=== PATIENT | female | born 1965 | race American Indian/Alaskan Native ===

== ENCOUNTER 2017-01-06 11:10 | Emergency (ER) | payer SELFPAY ==
[2017-01-06 11:21] VITALS: BP 185/104
[2017-01-06] MEDS ORDERED: TORADOL IM ONE (12:52)
--- NOTE | 2017-01-06 13:30 | XRay Report ---
Left knee 2 views: History: Fall, knee pain. Findings: Marked narrowing of medial and patellofemoral compartment knee joint. Sclerotic adjacent articular surfaces with peripheral osteophyte suggestive of severe degenerative changes. There is linear density noted at the lateral tibial plateau. This probably represents old injury. Recent trabecular compression fracture if present cannot be entirely excluded. No joint effusion. Impression: Severe arthritic changes. Additional findings as detailed above .
--- NOTE | 2017-01-06 13:33 | XRay Report ---
Lumbar spine 3 views: History: Fall with low back pain. Findings Normal height of vertebral bodies. Decrease in height of L4-5 and L5-S1 interspaces with mild degenerative changes. Area of pars interarticularis L5-S1 is not optimally visualized due to motion artifacts. Parts interarticularis defect, if present, in the region cannot be excluded. Impression: Findings as detailed above.
--- NOTE | 2017-01-06 18:38 | Emergency Department Report ---
Entered by ALISSON CHAPMAN, acting as scribe for CELESTINO GOMEZ NP. ED Back Pain/Injury HPI - General Chief Complaint: Back Pain/Injury Stated Complaint: LOWER BACK/LEFT KNEE/LEG PAIN Time Seen by Provider: 01/06/17 12:45 Source: patient Limitations: No Limitations - History of Present Illness Initial Comments: This is a 51 year old female nontoxic, well nourished in appearance, no acute signs of distress, present to ED c/o back pain radiating down to buttocks and left knee for 3 weeks. Patient reports she fell getting out the tub where she landed on her buttocks, she describes pain as constant. Patient denies numbness , tingling, chest pain, SOB, trauma, headache, head trauma, LOC, or dizziness. She reports PMH of arthritits but denies any kidney problems. NKDA. HEAD Complaint: back pain, fall -: week(s) (3) Similar Symptoms Previously: No Place: home (getting out the tub) Radiation: buttocks, left leg (knee) Severity: moderate Severity scale (0 -10): 4 Quality: aching Consistency: constant Improves With: none Worsens With: movement Context: fall Associated Symptoms: denies other symptoms. denies: confusion, weakness, chest pain, numbness, difficulty walking, cough, diaphoresis, incontinence, fever/ chills, constipation, headaches, abdominal pain, loss of appetite, malaise, nausea/vomiting, rash, seizure, shortness of breath, syncope - Related Data Previous Rx's Medication Instructions Recorded Last Taken Type Ibuprofen [Motrin 600 MG tab] 600 mg PO Q8H PRN #30 tablet 01/06/17 Unknown Rx predniSONE [Deltasone] 20 mg PO BID #10 tab 01/06/17 Unknown Rx Allergies Allergy/AdvReac Type Severity Reaction Status Date / Time No Known Allergies Allergy Unverified 01/06/17 11:21 ED Review of Systems Comment: All other systems reviewed and negative Constitutional: denies: chills, fever Eyes: denies: eye pain, eye discharge, vision change ENT: denies: ear pain, throat pain Respiratory: denies: cough, shortness of breath, wheezing Cardiovascular: denies: chest pain, palpitations Endocrine: no symptoms reported Gastrointestinal: denies: abdominal pain, nausea, vomiting, diarrhea Genitourinary: denies: urgency, dysuria, discharge Musculoskeletal: back pain. denies: joint swelling, arthralgia Skin: denies: rash, lesions Neurological: denies: headache, weakness, numbness, paresthesias Psychiatric: denies: anxiety, depression Hematological/Lymphatic: denies: easy bleeding, easy bruising ED Past Medical Hx - Past Medical History Hx Arthritis: Yes Additional medical history: back pain - Social History Smoking Status: Never Smoker Substance Use Type: None - Medications Home Medications: Home Medications Medication Instructions Recorded Confirmed Last Taken Type Ibuprofen [Motrin 600 MG tab] 600 mg PO Q8H PRN #30 tablet 01/06/17 Unknown Rx predniSONE [Deltasone] 20 mg PO BID #10 tab 01/06/17 Unknown Rx ED Physical Exam - General Limitations: No Limitations General appearance: alert, in no apparent distress - Head Head exam: Present: atraumatic, normocephalic, normal inspection - Eye Eye exam: Present: normal appearance, PERRL, EOMI. Absent: scleral icterus, conjunctival injection, nystagmus, periorbital swelling, periorbital tenderness - ENT ENT exam: Present: normal exam, normal orophraynx, mucous membranes moist, TM's normal bilaterally, normal external ear exam - Neck Neck exam: Present: normal inspection, full ROM. Absent: tenderness, meningismus, lymphadenopathy - Respiratory Respiratory exam: Present: normal lung sounds bilaterally. Absent: respiratory distress, wheezes, rales, rhonchi, stridor, chest wall tenderness, accessory muscle use, decreased breath sounds, prolonged expiratory - Cardiovascular Cardiovascular Exam: Present: regular rate, normal rhythm, normal heart sounds. Absent: systolic murmur, diastolic murmur, rubs, gallop - GI/Abdominal GI/Abdominal exam: Present: soft, normal bowel sounds. Absent: distended, tenderness, guarding, rebound, rigid, diminished bowel sounds - Extremities Exam Extremities exam: Present: normal inspection, full ROM, normal capillary refill. Absent: tenderness, pedal edema, joint swelling, calf tenderness - Expanded Lower Extremity Exam Left Hip exam: Present: normal inspection, full ROM, external rotation, internal rotation, pelvic stability. Absent: tenderness, swelling, abrasion, laceration , ecchymosis, deformity, crepidus, dislocation, erythema, shortening Upper Leg exam: Present: normal inspection, full ROM. Absent: tenderness, swelling, abrasion, laceration, ecchymosis, deformity, crepidus, dislocation, erythema Knee exam: Present: normal inspection, full ROM, full knee extension. Absent: tenderness, swelling, abrasion, laceration, ecchymosis, deformity, crepidus, dislocation, erythema, effusion, pain w/ pronation/supination, posterior draw sign, pain/laxity with valgus, pain/laxity with varus Lower Leg exam: Present: normal inspection, full ROM. Absent: tenderness, swelling, abrasion, laceration, ecchymosis, deformity, crepidus, dislocation, erythema, palpable cord, Geovany's sign Ankle exam: Present: normal inspection, full ROM. Absent: tenderness, swelling , abrasion, laceration, ecchymosis, deformity, crepidus, dislocation, erythema, anterior draw sign Foot/Toe exam: Present: normal inspection, full ROM. Absent: tenderness, swelling, abrasion, laceration, ecchymosis, deformity, crepidus, dislocation, erythema, amputation, puncture wound, foreign body, calcaneal tenderness, tenderness at base of 5th metatarsal, nail avulsion, subungual hematoma Neuro vascular tendon exam: Present: no vascular compromise. Absent: pulse deficit, abnormal cap refill, motor deficit, sensory deficit, tendon deficit, extremity cold to touch, pallor, abnormal 2-point discrimination, decreased fine /light touch, foot drop, peroneal nerve deficit, significant pain with passive ROM of distal joint Gait: Positive: observed and normal - Back Exam Back exam: Present: normal inspection, full ROM, vertebral tenderness (lumbar spinal tendnerss). Absent: tenderness, CVA tenderness (R), CVA tenderness (L), muscle spasm, paraspinal tenderness, rash noted - Expanded Back Exam Expanded Back exam: Present: normal rectal tone. Absent: saddle anesthesia Back exam: Negative Straight Leg Raising: Left, Right - Neurological Exam Neurological exam: Present: alert, oriented X3, CN II-XII intact, normal gait, reflexes normal - Psychiatric Psychiatric exam: Present: normal affect, normal mood - Skin Skin exam: Present: warm, dry, intact, normal color. Absent: rash ED Course Vital Signs 01/06/17 11:18 Temperature 98.1 F Pulse Rate 98 H Respiratory 18 Rate Blood Pressure 185/104 O2 Sat by Pulse 100 Oximetry - Reevaluation(s) Reevaluation #1: 01/06/17 13:44 Patient is able to speak in full sentences with no signs of distress. ED Medical Decision Making - Medical Decision Making Ed course: This is a 51-year-old female that presents to the ED with low back strain and lumbar radiculopathy 1- patient was examiend by myself. X-ray of lumbar has been obtained with negative findings of any abnormalities or fractures. Patient was notified of x- ray findings with no further question about the patient. 2- patient received prednisone at discharge and ibuprofen 3- patient was instructed to follow-up with a primary care doctor in 3-5 days or if symptoms worsen continue return to the emergency room as soon as possible 4- At time time of discharge, the patient does not seem toxic or ill in appearance. No acute signs of distress noted. Patient agrees to discharge treatment plan of care. No further questions noted by the patient. ED Disposition Clinical Impression: Lumbar radiculopathy Low back strain Qualifiers: Encounter type: initial encounter Qualified Code(s): S39.012A - Strain of muscle, fascia and tendon of lower back, initial encounter Disposition: - TO HOME OR SELFCARE Is pt being admited?: No Does the pt Need Aspirin: No Condition: Stable Instructions: Low Back Strain (ED), Lumbar Radiculopathy (ED), Prednisone (By mouth), Ibuprofen (By mouth) Additional Instructions: follow-up with a primary care doctor in 3-5 days or if symptoms worsen continue return to the emergency room as soon as possible Take prednisone and ibuprofen as prescribed Prescriptions: Ibuprofen [Motrin 600 MG tab] 600 mg PO Q8H PRN #30 tablet PRN Reason: Pain predniSONE [Deltasone] 20 mg PO BID #10 tab Referrals: PRIMARY CARE, [Primary Care Provider] - 3-5 Days BRITT DAVIES MD [Staff Physician] - 3-5 Days [facility] [Outside] - 3-[address] [facility] [Outside] - 3-5 Days This documentation as recorded by the ADELA rolon PEARL,accurately reflects the service I personally performed and the decisions made by ,CELESTINO GOMEZ, VANI.
== END 2017-01-06 14:15 | disposition home or self-care (01) ==
LOC: ED 11:10
DX: S39.012A Strain of muscle, fascia and tendon of lower back, initial encounter (principal); M54.16 Radiculopathy, lumbar region; X58.XXXA Exposure to other specified factors, initial encounter; Y93.9 Activity, unspecified; Y92.9 Unspecified place or not applicable; Y99.9 Unspecified external cause status
CPT/HCPCS: 72100; 73562; 96372; 99283; J1885